=== PATIENT | male | born 1970 ===

== ENCOUNTER 2020-07-04 08:22 | Outpatient (CLI) | payer BC ==
[2020-07-04] MEDS ORDERED: BARIUM SULFATE 135 ML SUSP.RECON (E-Z-HD) PO ONE (09:11)
== END 2020-07-05 15:11 | disposition home or self-care (01) ==
LOC: SRD 08:22 → EDUNIT# 08:22 → SRD 07-05 15:11
PROVIDERS: ATTEND Otolaryngology
DX: R13.10 Dysphagia, unspecified (principal)
CPT/HCPCS: 74220-TC